=== PATIENT | female | born 1955 | race Caucasian/White ===

== ENCOUNTER 2020-05-09 14:46 | Emergency (ER) | payer BC | END 2020-05-09 15:02 | disposition home or self-care (01) | LOC: JVIRT 14:46 | DX: Z03.818 Encounter for observation for suspected exposure to other biological agents ruled out (principal) | CPT/HCPCS: C9803; Q3014-GT; U0003 ==

== ENCOUNTER 2023-06-07 17:33 | Emergency (ER) | payer OTHER, BC ==
[2023-06-07 17:41] VITALS: BP 143/92; PULSE 85; RESP 17; TEMP 98.9; BMI 26.3
[2023-06-07] MEDS ORDERED: ACETAMINOPHEN 500 MG TABLET (FP) PO ONE (17:57)
[2023-06-07] MEDS ORDERED: ACETAMINOPHEN 500 MG TABLET (FP) ONE (18:08)
== END 2023-06-07 19:14 | disposition home or self-care (01) ==
LOC: FER 17:33
DX: S86.912A Strain of unspecified muscle(s) and tendon(s) at lower leg level, left leg, initial encounter (principal); M25.562 Pain in left knee; X50.9XXA Other and unspecified overexertion or strenuous movements or postures, initial encounter; Y93.01 Activity, walking, marching and hiking
CPT/HCPCS: 73562-TC-LT-FY; 99283-25